=== PATIENT | female | born 1980 | race Caucasian/White ===

== ENCOUNTER 2021-08-25 17:47 | Emergency (ER) | payer BC, SELFPAY ==
--- NOTE | 2021-08-25 17:52 | ED.UPPEXIN ---
HPI - Extremity Injury (Upper) General Chief Complaint: Extremity Problem,Nontraumatic Stated Complaint: Neck and Shoulder Pain Time Seen by Provider: 08/25/21 17:52 Source: patient Mode of arrival: ambulatory Limitations: no limitations History of Present Illness HPI narrative: Ms. Pinzon is a 40-year-old female patient presenting to the clinic today with complaints of neck and shoulder pain that started today after lifting her heavy work bag. She reports she needed to go the bathroom and sat her back down at work and then picked her back up and throat over her shoulder and developed muscle spasms to the left side of her neck and upper back. She reports the pain approximately 5 out of 10 currently. She has taken some ibuprofen approximately 4 hours prior to arrival. She denies any other known injury Related Data Allergies Allergy/AdvReac Type Severity Reaction Status Date / Time ciprofloxacin AdvReac Intermediate Dyspnea / Verified 08/25/21 17:50 SOB Review of Systems Review of Systems: Pertinent positives per HPI. Patient denies any fever, chills, rash, headache, visual changes, dizziness, cough, runny nose, sore throat, shortness of breath, chest pain, palpitations, nausea, vomiting, diarrhea, constipation, abdominal pain, or any urinary issues. PMFSH Comments At the time of my signature, I reviewed and agree with the nursing past medical, surgical, social, and family history. There is no relevant family history pertinent to the patient complaint. Exam Narrative: General: Well-developed, well nourished, in no apparent distress Head: Normocephalic, atraumatic. Cardio: Regular rate and rhythm, s1 and s2 normal, no murmur appreciated. Resp: Clear to auscultation bilaterally, no rhonchi, rales, wheezing or rubs. Musculoskeletal: No deformity, tender to palpation over the right cervical trapezius musculature, grossly normal range of motion, pain with raising up the arm against resistance, pain with turning head to the right against resistance, denies any radiation of pain down her arm, muscle strength strong and equal, peripheral pulse strong, no edema, no cyanosis, normal gait and station Course Course Emergency Course: Portions of this record may have been created with voice recognition software. Level of Care: Express Care Visit Vital Signs Vital signs: Vital signs reviewed MDM - Extremity Injury (Upper) MDM Narrative Medical decision making narrative: At the time of visit patient was resting comfortably on the exam table. Has pain with right-sided rotation of the neck against resistance as well as tenderness to palpation over the cervical/trapezius musculature. Pain with raising up her right arm to the posterior upper back. I suspect a cervical/trapezius muscular strain. We will send prescription for naproxen and Flexeril and supportive measures were discussed with patient she voiced understanding of discharge instructions. Discharge Plan Discharge Clinical Impression: Strain of cervical portion of right trapezius muscle Patient Disposition: Home, Self-Care Condition: Stable Instructions: Antibiotic Form, Muscle Strain (ED) Additional Instructions: Rest May use heat or ice May apply Aspercreme, blue emu, or lidocaine. No lifting over 10 pounds with the right arm Take Flexeril and naproxen as prescribed-do not take any additional ibuprofen while taking naproxen Practice stretching trapezius muscle Follow-up with your PCP in 3 to 5 days if symptoms persist or sooner if they worsen. Prescriptions: New naproxen 500 mg tablet 500 mg PO BID PRN (Reason: pain) 7 Days Qty: 14 RF: 0 cyclobenzaprine 10 mg tablet 10 mg PO Q8H PRN (Reason: muscle spasm) 7 Days Qty: 21 RF: 0 Follow-up/Referrals: Derik,ARUN Delarosa Jr. [Primary Care Provider] - Time of Disposition: 18:05 Quality NIHSS Nursing Documentation ED NIHSS nursing documentation: reviewed/agree
[2021-08-25 17:55] VITALS: BP 163/96; PULSE 84; RESP 18; TEMP 36.1; O2SAT 100
== END 2021-08-25 18:10 | disposition home or self-care (01) ==
PROVIDERS: Emergency Provider Nurse Practitioner Family; PCP Physician Assistant
DX: S46.811A Strain of other muscles, fascia and tendons at shoulder and upper arm level, right arm, initial encounter (principal); X50.0XXA Overexertion from strenuous movement or load, initial encounter
CPT/HCPCS: 99213; G0463

== ENCOUNTER 2023-06-04 18:27 | Emergency (ER) | payer BC, SELFPAY ==
--- NOTE | 2023-06-04 18:29 | ED.EAR ---
HPI - Ear Problem General Chief complaint: Ear Stated complaint: Ear Infection Time Seen by Provider: 06/04/23 18:29 Source: patient Mode of arrival: ambulatory Limitations: no limitations History of Present Illness HPI Narrative: Summer is a 42-year-old female patient presenting to clinic today with complaints of possible left ear infection. She reports symptoms started last night or early this morning. Denies any fever chills. Does have runny nose and cough congestion states she has had frequent ear infections in the past. States that she gets outer ear infection that moves into an inner ear infection. Related Data Allergies Allergy/AdvReac Type Severity Reaction Status Date / Time Sulfa (Sulfonamide Allergy Severe Anaphylaxis Verified 06/04/23 19:09 Antibiotics) ciprofloxacin AdvReac Intermediate Dyspnea / Verified 06/04/23 18:59 SOB Review of Systems Review of Systems: Pertinent positives per HPI. Patient denies any fever, chills, rash, headache, visual changes, dizziness, cough, shortness of breath, chest pain, palpitations, nausea, vomiting, diarrhea, constipation, abdominal pain, or any urinary issues. PMFSH Comments At the time of my signature, I reviewed and agree with the nursing past medical, surgical, social, and family history. There is no relevant family history pertinent to the patient complaint. Exam Narrative: General: Well-developed, well nourished, in no apparent distress Head: Normocephalic, atraumatic Eyes: Pupils equally round and reactive to light bilaterally, EOM intact, sclera and conjunctive clear, no discharge, lids normal Ears: Right TM intact and clear, left TM intact, with fluid noted behind the TM and mild bulging, ear canals clear, no drainage, grossly hearing normal. Nose: Nares patent, clear nasal discharge, no inflammation, no sinus tenderness. Mouth: Oral pharynx without lesions or masses, good dentition, MMM. Neck: Supple, trachea midline, no enlargement of anterior or posterior cervical nodes, no thyroid masses or goiter palpable. Cardio: Regular rate and rhythm, s1 and s2 normal, no murmur appreciated. Resp: Clear to auscultation bilaterally, no rhonchi, rales, wheezing or rubs Course Course Emergency Course: Portions of this record may have been created with voice recognition software. Level of Care: Express Care Visit Vital Signs Vital signs: Vital signs reviewed Medical Decision Making MDM Narrative Medical decision making narrative: At the time of visit patient is resting comfortably on the exam table. Patient appears to be nontoxic. Plan: I suspect patient has serous otitis left ear. Prescription for prednisone was sent to the pharmacy. Supportive measures were discussed with the patient and they voiced understanding discharge instructions and agrees to treatment plan. Return precautions reviewed Differential Diagnosis Differential Diagnosis: Otitis media, otitis externa, eustachian tube dysfunction, cerumen impaction, upper respiratory infection, serous otitis Discharge Plan Discharge Clinical Impression: Acute serous otitis media Patient Disposition: Home, Self-Care Condition: Stable Instructions: Antibiotic Form, Fluid In The Ear (Serous Otitis Media) (ED) Additional Instructions: Take prescription medications only as prescribed-prednisone Increase fluids and stay well hydrated Tylenol/motrin for pain/fever Flonase and OTC antihistamines as directed Vicks vapor rub to open sinuses Sinus rinses for congestion Go to the ED if you develop a worsening in your condition- high fever not controlled by Tylenol or Motrin, dehydration, weakness, lethargy, shortness of breath, or chest pain. Follow up with your PCP in 3-5 days if symptoms persist. Prescriptions: New prednisone 20 mg tablet 40 mg PO DAILY 5 Days Qty: 10 0RF Follow-up/Referrals: Derik,ARUN Delarosa Jr. [Primary Care Provider] - Time of Di
[2023-06-04 19:09] VITALS: BP 163/94; PULSE 91; RESP 16; TEMP 36.4; O2SAT 100
== END 2023-06-04 19:10 | disposition home or self-care (01) ==
PROVIDERS: Emergency Provider Nurse Practitioner Family; PCP Physician Assistant
DX: H65.02 Acute serous otitis media, left ear (principal); Z86.16 Personal history of COVID-19
CPT/HCPCS: 99213; G0463